=== PATIENT | male | born 1990 | race Caucasian/White ===

== ENCOUNTER 2018-06-11 00:39 | Emergency (ER) | payer MEDICAID, SELFPAY ==
[2018-06-11] VITALS (8 sets, daily range): BP systolic 115–140; BP diastolic 71–98; PULSE 95–105; RESP 14–18; TEMP 36.7; O2SAT 97–98; BMI 25.1
--- NOTE | 2018-06-11 01:16 | ED.VISSUMM ---
- ER Visit Summary Date of Service: 06/11/18 Chief Complaint: Depression and suicidal ideation History of Present Illness: The patient is a 27 M who presents with depression and suicidal ideation that became worse today. Patient states he has been depressed his whole life. Patient states he wants to hurt himself tonight. Patient admits to drinking beer tonight. Mother states a girl recently broke up with him which caused him to become suicidal tonight. Patient denies any specific plan for suicide. Patient states he would just hurt himself anyway he can. Physical Examination: Vital signs are stable. Patient is afebrile. Patient is in no acute distress. Oral mucosa is pink and moist. Neck is supple. Trachea is midline. There is no JVD noted. Heart was regular rate and rhythm. Lungs are clear and equal bilateral. There is good respiratory effort noted. Abdomen is soft and nontender. Cranial nerves II through XII are intact. There are no focal motor or sensory deficits noted. Patient does have a depressed mood and a flat affect. Patient has poverty of speech. Patient admits to suicidal thoughts but denies any specific plan. Test Results: CBC and basic metabolic profile were within normal limits. Urine tox screen was positive for amphetamines and cannabinoids. Serum alcohol was slightly elevated at 112. Emergency Department Course and Treatment: Patient was given a dose of Ativan here. Crisis counseling will be in to evaluate the patient. Crisis and I both feel patient would benefit from inpatient therapy. Crisis is attempting to find placement for the patient. Disposition: Transfer per crisis evaluation Impression: Depression with suicidal ideation This note was generated with MacuCLEAR dictation software. It may contain incorrect words, spelling, and punctuation that were not noted in review of the chart prior to signing ED Disposition - Plan for ED Patient: Chief Complaint: Suicidal Referrals: Antwon Joseph DO [Primary Care Provider] -
[2018-06-11 01:49] LABS: Absolute Lymphocyte Count 2.57 X10^3/ul (0.83-4.51); Absolute Neutrophil Count 5.8 X10^3/uL (2.0-7.7); Basophil# 0.04 X10^3/uL; Basophil% 0.4 % (0-1); Eosinophil# 0.13 X10^3/uL; Eosinophils% 1.4 % (0-5); Hematocrit 44.6 % (40-54); Hemoglobin 15.9 g/dl (13.0-16.5); Lymphocyte # 2.57 X10^3/ul (4.0); Mean Corp Hgb Conc 35.7 g/gl (32-36); Mean Corpuscular Hgb 36.2 pg (27.0-32.0); Mean Corpuscular Volume 101.6 fL (80-94); Mean Platelet Vol. 9.3 fl (6.2-12.0); Monocyte# 0.64 X10^3/uL; Neutrophil # 5.76 X10^3/uL (2.7-7.7); Neutrophil % 62.9 % (47-70); POSITIVE COUNT NO; POSITIVE DIFFERENTIAL NO; POSITIVE MORPHOLOGY NO; Platelet Count 354 K/mm3 (150-450); RBC Distribution Width CV 11.8 % (11.6-14.6); RBC Distribution Width SD 43.8 fl (35.1-43.9); Red Blood Count 4.39 M/mm3 (4.6-6.2); White Blood Count 9.2 K/mm3 (4.4-11.0)
[2018-06-11 01:55] LABS: Anion Gap 10 (5-15); BUN 10 mg/dL (7-18); BUN/Creat Ratio 12.9 RATIO (10-20); Calcium,Total 8.5 mg/dL (8.5-10.1); Chloride 104 mmol/L (98-107); Creatinine, Serum 0.78 mg/dL (0.70-1.30); EST Glomerular Filtration Rate 126 mL/min (>60); Est Glom Filt Rate - Afr Amer 153 mL/min (>60); Estimated Creatinine Clearance 150.17 ml/min; Glucose 93 mg/dL (74-106); Potassium 3.5 mmol/L (3.5-5.1); Sodium Level 139 mmol/L (136-145)
[2018-06-11 01:57] LABS: Amphetamine Urine VISTA POSITIVE (<1000 ng/mL); Barbiturate Urine VISTA NEGATIVE (< 200 ng/mL); Benzodiazepine Urine VISTA NEGATIVE (< 200 ng/mL); Cocaine Urine VISTA NEGATIVE (< 300 ng/mL); Ecstacy Urine VISTA NEGATIVE (< 500 ng/mL); Methadone Urine VISTA NEGATIVE (< 300 ng/mL); PCP Urine VISTA NEGATIVE (< 25 ng/mL); THC Urine VISTA POSITIVE (< 50 ng/mL); Vista UDS pH Range 6
--- NOTE | 2018-06-11 03:05 | ED.RN ---
CRISIS CALLED AND MADE AWARE OF PATIENT. CURRENTLY AT [facility]. AYUSH WITH CRISIS WILL IN SEE TO PATIENT SOON POSSIBLE
--- NOTE | 2018-06-11 03:06 | NURSING ---
CRISIS CALLED @ 0300. AYUSH NOTIFIED.
[2018-06-11] MEDS: LORazepam 1 MG Tablet PO (03:21)
--- NOTE | 2018-06-11 07:44 | ED.RN ---
PT CALM, HOWEVER IS SITTER UP IN BED WITH ONE LEG SWINGING OFF THE SIDE OF THE BED. PT HAS A SCOWL ON HIS FACE.
--- NOTE | 2018-06-11 08:09 | ED.RN ---
PT CONTINUES TO REFUSE FOOD.
--- NOTE | 2018-06-11 08:16 | ED.RN ---
PT RAN OUT OF ED, PT HAD A FRIEND WAITING OUTSIDE, RAN DOWN THE RAMP WITH A FRIEND. PT BAREFOOT, IN UNDERWEAR, AND GOWN. SECURITY CALLING LAW ENFORCEMENT.
--- NOTE | 2018-06-11 09:01 | ED.RN ---
pt accepted at [facility]. hailey from crisis aware that pt eloped
== END 2018-06-11 08:15 | disposition left against medical advice (07) ==
PROVIDERS: Emergency Provider Emergency Medicine; Family Provider Family Medicine; PCP Family Medicine
DX: R45.851 Suicidal ideations (principal); F32.9 Major depressive disorder, single episode, unspecified; Z72.0 Tobacco use; Z79.899 Other long term (current) drug therapy
CPT/HCPCS: 36415; 80048; 80307; 80320; 85025; 99284; G0480

== ENCOUNTER 2023-03-28 21:56 | Emergency (ER) | payer SELFPAY ==
[2023-03-28 21:58] VITALS: BP 127/92; PULSE 102; RESP 15; TEMP 36.6; O2SAT 100; BMI 28.8
--- NOTE | 2023-03-28 22:09 | EKG12_ITS ---
Test Reason : CP Blood Pressure : / mmHG Vent. Rate : 095 BPM Atrial Rate : 095 BPM P-R Int : 162 ms QRS Dur : 126 ms QT Int : 376 ms P-R-T Axes : 016 -09 005 degrees QTc Int : 472 ms Normal sinus rhythm Non-specific intra-ventricular conduction block Abnormal ECG Confirmed by NÉSTOR CERVANTES, NISHA ([id number]), features editor TESS MURRIETA ([id number]) on 03/31/2023 7:39:17 AM Referred By: MATT Confirmed By:NISHA PALM MD
--- NOTE | 2023-03-28 22:15 | RAD_ITS ---
INDICATION: chest pain EXAMINATION/TECHNIQUE: X-RAY - XR Chest 1 View COMPARISON: No comparison imaging received FINDINGS: LINES/DEVICES: None. LUNGS: No pulmonary edema or focal airspace consolidation. No sizable pleural effusion. No pneumothorax detected. MEDIASTINUM AND CARDIOVASCULAR STRUCTURES: Heart size within normal limits. Mediastinal contours unremarkable. BONES AND SOFT TISSUES: No acute findings. RAD/Chest 1 View (Portable) IMPRESSION: No radiographic evidence of acute cardiopulmonary disease. Electronically Signed: Shmuel Lee MD at 22:31 EDT ,
[2023-03-28 22:30] LABS: Absolute Lymphocyte Count 1.36 X10^3/uL (0.83-4.51); Basophil# 0.04 X10^3/uL; Basophil% 0.4 % (0-1); Eosinophil# 0.02 X10^3/uL; Eosinophils% 0.2 % (0-5); Lymphocyte # 1.36 X10^3/ul (0.83-4.51); Lymphocyte % 13.4 % (19-41); Mean Corp Hgb Conc 34.1 g/dL (32-36); Mean Corpuscular Hgb 35.4 pg (27.0-32.0); Mean Corpuscular Volume 103.5 fL (80-94); Mean Platelet Vol. 9.3 fl (6.2-12.0); Monocyte# 0.68 X10^3/uL; Monocyte% 6.7 % (0-10); NRBC Flagged by Analyzer 0 % (0-5); Neutrophil % 78.8 % (47-70); Platelet Count 302 K/mm3 (150-450); RBC Distribution Width CV 11.6 % (11.6-14.6); RBC Distribution Width SD 44.6 fl (35.1-43.9); Red Blood Count 3.96 M/mm3 (4.6-6.2); White Blood Count 10.2 K/mm3 (4.4-11.0)
[2023-03-28 22:43] LABS: D-Dimer Quantitative (DVT/PE) < 0.27 FEU/ug/m (0.27-0.49)
[2023-03-28 22:48] LABS: Anion Gap 6 (5-15); BUN 16 mg/dL (7-18); BUN/Creat Ratio 15.4 RATIO (10-20); Calcium,Total 8.9 mg/dL (8.5-10.1); Chloride 102 mmol/L (98-107); Creatinine, Serum 1.04 mg/dL (0.70-1.30); EST Glomerular Filtration Rate 87 mL/min (>60); Est Glom Filt Rate - Afr Amer 106 mL/min (>60); Glucose 98 mg/dL (74-106); Potassium 3.8 mmol/L (3.5-5.1); Sodium Level 136 mmol/L (136-145); Troponin-I HS 5 pg/mL (3.0-78.0)
--- NOTE | 2023-03-28 23:08 | ED.VIS.CHEST ---
HPI History of Present Illness Chief Complaint: Chest Pain Narrative Narrative: 32-year-old male presenting with chest pain and palpitations. He states he originally noticed this in June of this year while he was snow shoveling and noticed he had palpitations and a sharp pain which would come intermittently into the left side of his chest. This subsequently had subsided. He notes that a couple of months ago it started coming back and its been intermittent since then. He does feel like he is lightheaded at times. He does not have any chest pressure. There is no pleuritic component to it. Patient has no history of DVT and no risk factors. No history of cardiac disease. He admits to drinking a bottle of wine nightly and he does vape however he previously smoked cigarettes. He states he eats a healthy diet however. Is not had his chest pain evaluated yet because he does not have insurance or physician. The patient does note that he has history of anxiety and was previously on Ativan when he was younger. He is no longer on this. 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 He states he does have a high level of stress because of this. PFSH PFSH Medical History no medical history Home Medications NK 03/28/23 [History Last Taken Unknown] Allergy/AdvReac Type Severity Reaction Status Date / Time No Known Allergies Allergy Verified 03/28/23 22:00 Surgical History no surgical history Social History Smoking Status: Current every day smoker tobacco type: e-cigarettes ROS ROS ED Constitutional Constitutional ED: Denies chills, fever(s) or sweats Eyes Eyes: Denies blurry vision or change in vision ENT ENT ED: Denies ear pain or sore throat Cardiovascular Cardiovascular: Reports chest pain and palpitations; Denies racing heartbeat Respiratory/Chest Respiratory/Chest: Denies cough, dyspnea or sputum Gastrointestinal Gastrointestinal: Denies abdominal pain, constipation, diarrhea, nausea or vomiting Genitourinary Genitourinary ED: Denies dysuria, hematuria or urinary frequency Musculoskeletal Musculoskeletal: Denies arthralgias, myalgias or neck pain Integumentary Denies abscess, Abrasions or rash Neurologic Neurologic: Denies headache(s), paresthesias or weakness Psychiatric Psychiatric: Denies anxiety, depression, suicidal ideation or suicidal thoughts Endocrine Endocrinology: Denies polydipsia or polyuria EXAM Physical Exam Const Vital Signs: 03/28/23 21:58 03/28/23 22:13 03/28/23 22:14 Temperature 97.9 F Temperature Source Temporal Pulse Rate 102 H Respiratory Rate 15 Respiratory Effort Normal Non-Labored Blood Pressure 127/92 H Blood Pressure Mean 103 Pulse Ox 100 Oxygen Delivery Method Room Air Room Air Positive well nourished General Appearance ED: NAD HEENT Reports moist mucous membranes normocephalic and atraumatic Eyes PERRL Neck no lymphadenopathy Chest Wall inspection of chest normal and palpation of chest normal Resp normal respiratory effort and clear to auscultation bilaterally Auscultation: Negative for rales, rhonchi or wheezes Cardio regular rate and regular rhythm Extremity normal to inspection General Extremety ED: Negative for edema General Extremity: Negative for edema Neuro oriented x3 and CN's II-XII intact bilaterally Sensorium / Orientation: awake and alert Psych mental status grossly normal Skin no rashes or lesions noted Heart Score History: Slightly/Non-Suspicious ECG: Normal Risk Factors: 1 or 2 Risk Factors Troponin: </= Normal Limit Score: 1 MDM MDM MDM Narrative Medical decision making narrative: 2-year-old male with history of anxiety and chest pain and palpitations. Differential includes anxiety, ACS, pneumonia, costochondritis, dehydration, electrolyte abnormalities, PE. CBC was obtained to assess white blood cell count, hemoglobin, platelets. BMP to assess renal function and electrolytes. High-sensitivity troponin and EKG will be obtained to assess for ischemia/dysrhythmia. D-dimer will be obtained to rule out PE. X-ray to rule out pneumonia. Patient low risk for PE although he is tachycardic so I cannot PERC him. D-dimer was negative at less than 0.27. CBC shows a normal leukocytosis of 10.2. Hemoglobin 14. High-sensitivity troponin is 5. EKG shows a sinus rhythm at 95 bpm without sign of ischemic change on my interpretation. Chest x-ray my interpretation shows no acute process. Renal function and electrolytes appear to be normal. I do not believe the patient needs a delta troponin. I suspect this is likely due to anxiety. I recommend that he make an appointment for follow-up with her primary care physician and get established. I feel he can safely be discharged. All questions were answered. Discharged home in stable condition. Return precautions discussed. Impression: 1. Chest pain 2. Palpitations 3. Anxiety history Lab Data Attestation: I reviewed the patient's lab results. Labs: Laboratory Results - last 24 hr 03/28/23 22:28 WBC 10.2 RBC 3.96 L Hgb 14.0 Hct 41.0 MCV 103.5 H MCH 35.4 H MCHC 34.1 RDW Std Deviation 44.6 H RDW Coeff of Leslei 11.6 Plt Count 302 MPV 9.3 Immature Gran % (Auto) 0.500 Neut % (Auto) 78.8 H Lymph % (Auto) 13.4 L Hand % (Auto) 6.7 Eos % (Auto) 0.2 Baso % (Auto) 0.4 Absolute Neuts (auto) 8.0 H Absolute Lymphs (auto) 1.36 Nucleated RBC % 0 D-Dimer Quant (PE/DVT) < 0.27 L Sodium 136 Potassium 3.8 Chloride 102 Carbon Dioxide 28.0 Anion Gap 6 BUN 16 Creatinine 1.04 Estim Creat Clear Calc 107.60 Est GFR (MDRD) Af Amer 106 Est GFR (MDRD) Non-Af 87 BUN/Creatinine Ratio 15.4 Glucose 98 Calcium 8.9 Troponin I High Sens 5 Radiography Diagnostic Testing: Clinical Impression(s) from Imaging Studies Chest X-Ray 03/28/23 22:15 IMPRESSION: No radiographic evidence of acute cardiopulmonary disease. Electronically Signed: Shmuel Lee MD at 22:31 EDT , Discharge Plan Triage Chief Complaint: Chest Pain ED Provider: Eder Hemphill Dx/Rx/DC Orders Prescriptions: No Action NK Primary Care Provider: Care Physician,No Primary Referrals: Care Physician,No Primary [Primary Care Provider] -
[2023-03-28 23:27] VITALS: PULSE 72; RESP 16; O2SAT 98
== END 2023-03-28 23:28 | disposition home or self-care (01) ==
PROVIDERS: Emergency Provider Student in an Organized Health Care Education/Training Program; Visit Provider Student in an Organized Health Care Education/Training Program
DX: R07.9 Chest pain, unspecified (principal); Z87.891 Personal history of nicotine dependence; F41.9 Anxiety disorder, unspecified; R00.2 Palpitations
CPT/HCPCS: 71045; 80048; 84484; 85025; 85379; 93005; 99283; A4216

== ENCOUNTER → 2023-07-08 | Outpatient (CLI) | payer MEDICAID, SELFPAY ==
[2023-07-08 11:37] LABS: Absolute Lymphocyte Count 1.98 X10^3/uL (0.83-4.51); Basophil# 0.06 X10^3/uL; Eosinophil# 0.08 X10^3/uL; Eosinophils% 1.4 % (0-5); Hematocrit 44.4 % (40-54); Hemoglobin 14.9 g/dL (13.0-16.5); Lymphocyte # 1.98 X10^3/ul (0.83-4.51); Lymphocyte % 33.7 % (19-41); Mean Corp Hgb Conc 33.6 g/dL (32-36); Mean Corpuscular Hgb 34.7 pg (27.0-32.0); Mean Corpuscular Volume 103.3 fL (80-94); Mean Platelet Vol. 9.7 fl (6.2-12.0); Monocyte# 0.66 X10^3/uL; Monocyte% 11.2 % (0-10); NRBC Flagged by Analyzer 0 % (0-5); Neutrophil # 3.03 X10^3/uL (2.7-7.7); Neutrophil % 51.5 % (47-70); Platelet Count 353 K/mm3 (150-450); RBC Distribution Width CV 11.9 % (11.6-14.6); RBC Distribution Width SD 45.3 fl (35.1-43.9); White Blood Count 5.9 K/mm3 (4.4-11.0)
[2023-07-08 12:08] LABS: AST(SGOT) 31 U/L (15-37); Alanine Aminotransfer ALT/SGPT 42 U/L (16-61); Albumin, Serum 3.8 g/dL (3.2-5.0); Alkaline Phosphatase 65 U/L (45-117); Anion Gap 3 (5-15); BUN 15 mg/dL (7-18); BUN/Creat Ratio 15.1 RATIO (10-20); Calcium,Total 9.5 mg/dL (8.5-10.1); Chloride 106 mmol/L (98-107); Cholesterol 320 mg/dL (200); Creatinine, Serum 0.99 mg/dL (0.70-1.30); EST Glomerular Filtration Rate 92 mL/min (>60); Est Glom Filt Rate - Afr Amer 111 mL/min (>60); Globulin 3.8 g/dL (2.2-4.2); Glucose 103 mg/dL (74-106); High Density Lipoprotein 85 mg/dL; Potassium 4.7 mmol/L (3.5-5.1); Protein, Total 7.6 g/dL (6.4-8.2); Sodium Level 139 mmol/L (136-145); Thyroid Stim Hormone (TSH) 2.23 uIU/mL (0.358-3.74); Triglycerides 387 mg/dL; Very Low Density Lipoprotein 77 mg/dL (5-40)
== END | disposition home or self-care (01) ==
LOC: LAB 10:43
PROVIDERS: Referring Provider Internal Medicine Cardiovascular Disease; Visit Provider Internal Medicine Cardiovascular Disease
DX: R07.9 Chest pain, unspecified (principal); F17.200 Nicotine dependence, unspecified, uncomplicated; R42 Dizziness and giddiness; R00.2 Palpitations
CPT/HCPCS: 36415; 80053; 80061; 84443; 85025

== ENCOUNTER → 2023-11-03 | Outpatient (CLI) | payer MEDICAID, SELFPAY ==
--- NOTE | 2023-11-03 10:48 | ECHOD_ITS ---
Reason For Study: CHEST PAIN Procedure This was a 2D Doppler, Color Flow transthoracic echocardiogram. Exam performed in department. Left Ventricle Normal LV size. Left ventricular systolic function is normal. The estimated ejection fraction is 55 %. Normal diastololic function. Right Ventricle Normal RV size. Normal systolic function. Atria The left and right atria are normal. Mitral Valve The mitral valve is structurally normal. No prolapse or stenosis seen. Tricuspid Valve Normal tricuspid valve. Trivial tricuspid valve insufficiency. Unable to estimate RV systolic pressure due to insufficient tricuspid regurgitant envelope. Aortic Valve Trisinus/trileaflet aortic valve. Pulmonic Valve Normal pulmonic valve. Mild (1+) pulmonic valve insufficiency. Great Vessels Normal aortic root. Pericardium/Pleural No pericardial effusion. MMode/2D Measurements & Calculations LVIDd: 5.0 cm IVSd: 1.0 cm LVOT diam: 2.5 cm LVIDs: 3.1 cm LVPWd: 1.0 cm LVOT area: 4.9 cm2 RVDd: 3.9 cm FS: 37.1 % Ao root diam: 3.6 cm LAV(MOD-bp): 46.1 ml LVAd ap4: 31.7 cm2 LAV(MOD-bp) Indexed: 21.6 ml/m2 LVLd ap4: 9.4 cm LAV(MOD-sp2): 50.6 ml EDV(MOD-sp4): 90.7 ml LAV(MOD-sp4): 38.6 ml EDV(sp4-el): 90.7 ml LVAs ap4: 18.7 cm2 LVLs ap4: 7.8 cm ESV(MOD-sp4): 39.0 ml ESV(sp4-el): 38.1 ml EF(MOD-sp4): 57.0 % EF(sp4-el): 58.0 % LVAd ap2: 33.8 cm2 SV(MOD-sp4): 51.7 ml SV(MOD-sp2): 56.7 ml LVLd ap2: 9.4 cm EDV(MOD-sp2): 101.8 ml EDV(sp2-el): 102.8 ml LVAs ap2: 20.3 cm2 LVLs ap2: 8.0 cm ESV(MOD-sp2): 45.1 ml ESV(sp2-el): 43.6 ml EF(MOD-sp2): 55.7 % SV(sp4-el): 52.7 ml LA dimension(2D): 4.5 cm LA A4 area: 16.8 cm2 RA A4 area: 14.9 cm2 TAPSE: 1.7 cm Time Measurements MV dec time: 0.21 sec Doppler Measurements & Calculations MV E max roc: 77.8 cm/sec Lat Peak E' Roc: 17.2 cm/sec Med Peak E' Roc: 11.2 cm/sec MV A max roc: 66.0 cm/sec E/E' lat: 4.5 E/E' med: 7.0 MV E/A: 1.2 Ao V2 max: 109.3 cm/sec LV V1 max: 103.3 cm/sec MV dec slope: 362.1 cm/sec2 Ao max P.8 mmHg LV V1 max P.3 mmHg Ao V2 mean: 75.3 cm/sec LV V1 mean P.5 mmHg Ao mean P.6 mmHg LV V1 mean: 73.8 cm/sec Ao V2 VTI: 22.8 cm LV V1 VTI: 22.1 cm AV (velocity ratio): 0.97 GETACHEW(I,D): 4.8 cm2 GETACHEW(V,D): 4.6 cm2 SV(LVOT): 108.6 ml PA V2 max: 105.9 cm/sec PA max PG (full): 2.3 mmHg ECHO/Echo Complete Interpretation Summary The estimated ejection fraction is 55 %. Normal diastololic function. Structurally normal valves. Ordering Physician: Marissa Zeng Referring Physician: Marissa Zeng Performed By: Vianca Pacheco RDCS
== END | disposition home or self-care (01) ==
LOC: CVS 10:45
PROVIDERS: Referring Provider Internal Medicine Cardiovascular Disease; Visit Provider Internal Medicine Cardiovascular Disease
DX: R42 Dizziness and giddiness (principal); R00.2 Palpitations; R07.9 Chest pain, unspecified
CPT/HCPCS: 93306

== ENCOUNTER 2023-12-05 18:40 | Emergency (ER) | payer MEDICAID, SELFPAY ==
[2023-12-05 18:41] VITALS: BP 138/99; PULSE 87; RESP 18; TEMP 36.1; O2SAT 97; BMI 29.5
--- NOTE | 2023-12-05 18:53 | CT_ITS ---
EXAM: CT ABDOMEN AND PELVIS WITH INTRAVENOUS CONTRAST CLINICAL INDICATION: Epigastric pain TECHNIQUE: Helically acquired images were obtained of the abdomen and pelvis with intravenous contrast. This CT exam was performed using one or more of the following dose reduction techniques: automated exposure control, adjustment of the mA and/or kV according to patient size, and/or use of iterative reconstruction technique. CONTRAST: IV 100mL Isovue-370 RADIATION DOSE: CTDIvol = 15.09 mGy, DLP = 1198.66 mGy-cm COMPARISON: No relevant prior studies available. FINDINGS: LOWER THORAX: Unremarkable. Lung bases are clear. No cardiomegaly. No significant pericardial effusion. ABDOMEN: LIVER: Unremarkable. Homogeneous. No focal mass. GALLBLADDER AND BILE DUCTS: Unremarkable. No calcified gallstones. No gallbladder distention or wall edema. No intra- or extrahepatic biliary ductal dilation. PANCREAS: Unremarkable. No focal cystic or solid mass. SPLEEN: Unremarkable. Normal size without focal cystic or solid mass. ADRENALS: Unremarkable. No nodules. KIDNEYS AND URETERS: Unremarkable. Normal renal size and position. No hydronephrosis. STOMACH AND BOWEL: Wall thickening and inflammation of the terminal ileum suggesting terminal ileitis. No stomach or bowel distention. PELVIS: APPENDIX: No evidence of acute appendicitis. BLADDER: Unremarkable. REPRODUCTIVE: Unremarkable as visualized. No mass. ABDOMEN and PELVIS: INTRAPERITONEAL SPACE: Unremarkable. No ascites or other fluid collection. No free air. BONES/JOINTS: Unremarkable. No suspicious lytic or blastic abnormality. SOFT TISSUES: Unremarkable. No discrete abdominal or pelvic wall hernia. VASCULATURE: Unremarkable. Abdominal aorta is non-dilated. LYMPH NODES: Unremarkable. No enlarged lymph nodes. CT/Abdomen/Pelvis W IV Cont ONLY IMPRESSION: Wall thickening and inflammation of the terminal ileum suggesting terminal ileitis. Electronically Signed: Billy Rangel MD at 20:02 EDT ,
--- NOTE | 2023-12-05 18:53 | ED.VIS.GI ---
HPI HPI - GI History of Present Illness Chief Complaint: Abd Pain Narrative Narrative: 33-year-old male presents with his mother because of epigastric pain, and diarrhea that has had for the last few hours. He relates history that on Thursday at the beginning of the week, almost 6 days ago he felt like he may have had food poisoning. He had nausea and vomiting which resolved. Last evening and a few hours ago he developed diarrhea, now has epigastric pain and cramping. He denies any fevers or chills, no exacerbating or alleviating factors. Said decreased appetite as well all week. He presents mainly because of the upper, epigastric pain. He does drink alcohol and states that he drinks a bottle of wine almost daily. No prior abdominal surgeries. He does not take daily medications. [facility] Medical History Nicotine dependence ETOH abuse Anxiety Lightheadedness Palpitations Chest pain Home Medications ?Medication ?Instructions ?Recorded ?Last Taken ?Type NK 07/08/23 Unknown History Allergy/AdvReac Type Severity Reaction Status Date / Time No Known Allergies Allergy Verified 12/05/23 18:42 Social History household members: family housing: house Smoking Status: Current some day smoker tobacco type: e-cigarettes Electronic Cigarette Use: with nicotine alcohol intake: current alcohol intake frequency: a few times a week Alcohol type: wine substance use type: does not use caffeine: No ROS ROS ED ROS Narrative Constitutional: No fever, no chills. HEENT: No sore throat. No neck pain. No loss of vision. No rhinorrhea. Cardiovascular: No chest pain. No palpitations. No pedal edema. Respiratory: No cough, no shortness of breath. Abdominal: Positive epigastric pain. Reported watery stool and diarrhea beginning early this morning. Nausea and vomiting earlier in the week-resolved. Genitourinary: No dysuria. No hematuria. Musculoskeletal: No myalgias. No arthralgias. Neurologic: No headaches. No dizziness. No lightheadedness. Skin: No rash. No change in color. Psychiatric: No depression. No anxiety. EXAM Physical Exam Narrative Exam Narrative: Afebrile. Vital signs noted. HEENT: Normocephalic. Atraumatic. PERRL, EOMI. Neck soft and supple. No point tenderness or step off. Cardiovascular: Regular rate and rhythm. No murmurs, rubs, or gallops appreciated. Respiratory: No tachypnea. Lungs clear to auscultation bilaterally. Gastrointestinal: Abdomen soft, positive epigastric tenderness, with normoactive bowel sounds. No rebound or guarding. Negative Contreras sign. No tenderness in the bilateral lower quadrants. Neurological: Awake. Alert. Nonfocal, nonlateralizing. Skin: No rash. Normal color. No pallor. Musculoskeletal: No pedal edema. Full range of motion extremities. Const Vital Signs: 12/05/23 18:41 12/05/23 20:40 12/05/23 20:52 Temperature 97 F L 97 F L Temperature Source Temporal Pulse Rate 87 72 72 Respiratory Rate 18 14 14 Blood Pressure 138/99 H 113/78 113/78 Blood Pressure Mean 112 89 89 Pulse Ox 97 98 98 Oxygen Delivery Method Room Air MDM MDM MDM Narrative Medical decision making narrative: With his history of alcohol use, the differential is pancreatitis versus alcoholic gastritis. He could have transverse diverticulitis as well versus gastroenteritis. Comprehensive workup was pursued. He will be bolused normal saline and administered ondansetron. I will check a CBC, CMP, and lipase. I do feel that CT imaging is warranted. I reviewed his laboratory work and he has normal white count of 8.8, hemoglobin 13.9, hematocrit 40.9, platelet count normal at 286. Electrolyte panel is grossly unremarkable with normal BUN of 11 and creatinine 0.88, sodium normal at 138 with potassium 3.5. LFTs are grossly unremarkable except for total bilirubin slightly elevated 1.4, but this appears to be chronic. Lipase normal at 38 so I do not suspect acute pancreatitis. Reviewed the radiology report of the CT of the abdomen and pelvis which shows wall thickening around the terminal ileum consistent with terminal ileitis. However, he does not have pain in the lower quadrants of the abdomen, and it is more epigastric. He had been given morphine and ondansetron and a bolus of normal saline. I discussed the patient with Dr. Wang who agrees with outpatient workup of the terminal ileitis but the patient does not require any emergent medications currently. He and his mother state that he has taken omeprazole on and off for years. I told him to restart his omeprazole and follow-up with gastroenterology. He may have more of a gastritis. I feel he can be discharged safely home with follow-up. Return instructions to the emergency department were reviewed. Disposition is discharged home in stable condition. History & Record Review Discussion w/independent historian: Patient Lab Data Attestation: I reviewed the patient's lab results. Labs: Laboratory Results - last 24 hr 12/05/23 12/05/23 18:55 19:03 WBC 8.8 RBC 4.04 L Hgb 13.9 Hct 40.9 MCV 101.2 H MCH 34.4 H MCHC 34.0 RDW Std Deviation 44.8 H RDW Coeff of Leslie 11.9 Plt Count 286 MPV 9.0 Immature Gran % (Auto) 0.500 Neut % (Auto) 75.1 H Lymph % (Auto) 12.8 L [place] % (Auto) 10.0 Eos % (Auto) 1.1 Baso % (Auto) 0.5 Absolute Neuts (auto) 6.6 Absolute Lymphs (auto) 1.13 Nucleated RBC % 0 Sodium 138 Potassium 3.5 Chloride 104 Carbon Dioxide 25.0 Anion Gap 9 BUN 11 Creatinine 0.88 Estim Creat Clear Calc 139.96 Est GFR (MDRD) Af Amer 128 Est GFR (MDRD) Non-Af 106 BUN/Creatinine Ratio 12.5 Glucose 111 H Calcium 9.0 Total Bilirubin 1.40 H AST 24 ALT 34 Alkaline Phosphatase 50 Total Protein 7.2 Albumin 3.6 Globulin 3.6 Albumin/Globulin Ratio 1.0 Lipase 38 Urine Color Yellow Urine Clarity Clear Urine pH 6.0 Ur Specific [place] 1.020 Urine Protein Negative Urine Glucose (UA) Normal Urine Ketones Negative Urine Occult Blood 25 H Urine Nitrite Negative Urine Bilirubin Negative Urine Urobilinogen Normal Ur Leukocyte Esterase Negative Urine RBC 0-5 SEEN Urine WBC 0 SEEN Ur Squamous Epith Cells 0 SEEN Urine Bacteria RARE Urine Mucus 0 SEEN Radiography Diagnostic Testing: Clinical Impression(s) from Imaging Studies Abdomen/Pelvis CT 12/05/23 18:53 IMPRESSION: Wall thickening and inflammation of the terminal ileum suggesting terminal ileitis. Electronically Signed: Billy Rangel MD at 20:02 EDT Reading Location ID and State: [facility] / [place] , Service support , Management Discussion w/another healthcare provider: Staffing Mgr (Dr. Wang) Discharge Plan Triage Chief Complaint: Abd Pain ED Provider: Kwame Mendiola Dx/Rx/DC Orders Clinical Impression: Terminal ileitis, Epigastric abdominal pain Instructions: ED Gastritis Ulcer No Abx, ED Epigastric Pain Uncertain Cause Prescriptions: No Action NK Primary Care Provider: Care Physician,No Primary Referrals: Johnny Wang DO [Med Staff - Active Staff] - As soon as possible Care Physician,No Primary [Primary Care Provider] - Activity Restrictions/Additional Instructions: Start taking your omeprazole again. Follow-up with Dr. Wang as soon as possible. Print Language: Cymraes Disposition Disposition: Home, Self Care Discharge Date/Time: 12/05/23 21:12
[2023-12-05] MEDS: 0.9% Normal Saline (1000mL) 1,000 ML 999 ML IV (19:02)
[2023-12-05] MEDS: Ondansetron 4 MG/2 ML Vial IV (19:02)
[2023-12-05 19:04] LABS: Absolute Lymphocyte Count 1.13 X10^3/uL (0.83-4.51); Absolute Neutrophil Count 6.6 X10^3/uL (2.0-7.7); Basophil# 0.04 X10^3/uL; Basophil% 0.5 % (0-1); Eosinophils% 1.1 % (0-5); Hematocrit 40.9 % (40-54); Hemoglobin 13.9 g/dL (13.0-16.5); Lymphocyte # 1.13 X10^3/ul (0.83-4.51); Lymphocyte % 12.8 % (19-41); Mean Corpuscular Hgb 34.4 pg (27.0-32.0); Mean Corpuscular Volume 101.2 fL (80-94); Monocyte# 0.88 X10^3/uL; NRBC Flagged by Analyzer 0 % (0-5); Neutrophil # 6.64 X10^3/uL (2.7-7.7); Neutrophil % 75.1 % (47-70); Platelet Count 286 K/mm3 (150-450); RBC Distribution Width CV 11.9 % (11.6-14.6); RBC Distribution Width SD 44.8 fl (35.1-43.9); Red Blood Count 4.04 M/mm3 (4.6-6.2); White Blood Count 8.8 K/mm3 (4.4-11.0)
[2023-12-05 19:10] LABS: Mucous, Urine 0 SEEN /hpf (<or=2+); Squamous Epithelial Cells - UA 0 SEEN /hpf (0-5); White Blood Cells 0 SEEN /hpf (0-5)
[2023-12-05 19:14] LABS: Color, Urine Yellow (Yellow); Glucose, Dipstick Normal (Normal); Ketone-Dipstick Negative (Negative); Leukocyte Esterase-Dipstick Negative /ul (Negative); Nitrite-Dipstick Negative (Negative); Occult Blood-Urine 25 /ul (Negative); Protein-Dipstick Negative (Negative); Urine Bilirubin Dipstick Negative (Negative); Urine Clarity Clear (Clear); Urine Urobilinogen Normal (Normal)
[2023-12-05 19:25] LABS: Bacteria RARE /hpf (None Seen); Red Blood Cells-Urine 0-5 SEEN /hpf (0-5)
[2023-12-05 19:30] LABS: AST(SGOT) 24 U/L (15-37); Alanine Aminotransfer ALT/SGPT 34 U/L (16-61); Albumin, Serum 3.6 g/dL (3.2-5.0); Alkaline Phosphatase 50 U/L (45-117); Anion Gap 9 (5-15); BUN 11 mg/dL (7-18); BUN/Creat Ratio 12.5 RATIO (10-20); Chloride 104 mmol/L (98-107); Creatinine, Serum 0.88 mg/dL (0.70-1.30); EST Glomerular Filtration Rate 106 mL/min (>60); Est Glom Filt Rate - Afr Amer 128 mL/min (>60); Estimated Creatinine Clearance 139.96 ml/min; Globulin 3.6 g/dL (2.2-4.2); Glucose 111 mg/dL (74-106); Lipase 38 U/L (13-75); Potassium 3.5 mmol/L (3.5-5.1); Protein, Total 7.2 g/dL (6.4-8.2); Sodium Level 138 mmol/L (136-145)
[2023-12-05] MEDS: Morphine 4 MG/ML Syringe IV (20:19)
[2023-12-05 20:40] VITALS: BP 113/78; PULSE 72; RESP 14; O2SAT 98
[2023-12-05 20:52] VITALS: BP 113/78; PULSE 72; RESP 14; TEMP 36.1; O2SAT 98
== END 2023-12-05 21:12 | disposition home or self-care (01) ==
PROVIDERS: Emergency Provider Emergency Medicine; Visit Provider Emergency Medicine
DX: R10.13 Epigastric pain (principal); K50.00 Crohn's disease of small intestine without complications; F17.290 Nicotine dependence, other tobacco product, uncomplicated
CPT/HCPCS: 74177; 80053; 81001; 83690; 85025; 96361; 96374; 96375; 99283; J7030; Q9967; A4216; J2405

== ENCOUNTER 2024-06-13 17:55 | Emergency (ER) | payer MEDICAID, SELFPAY ==
[2024-06-13] VITALS (7 sets, daily range): BP systolic 103–132; BP diastolic 62–99; PULSE 82–101; RESP 12–26; TEMP 36.6; O2SAT 95–100; BMI 27.8
--- NOTE | 2024-06-13 18:57 | EKG12_ITS ---
Test Reason : CP Blood Pressure : */* mmHG Vent. Rate : 94 BPM Atrial Rate : 94 BPM P-R Int : 170 ms QRS Dur : 122 ms QT Int : 368 ms P-R-T Axes : 31 -20 -5 degrees QTcB Int : 460 ms Normal sinus rhythm Non-specific intra-ventricular conduction delay Borderline ECG Confirmed by NÉSTOR CERVANTES, NISHA ([id number]), purchasing expeditor ANGELES IVY ([id number]) on 06/16/2024 2:23:41 PM Referred By: ANNEL Confirmed By: NISHA PALM MD
--- NOTE | 2024-06-13 19:05 | RAD_ITS ---
STUDY: X-RAY CHEST REASON FOR EXAM: Male, 33 years old. Chest pain TECHNIQUE: PA and lateral views of the chest. COMPARISON: None. FINDINGS: The lungs are clear and expanded. There is no demonstrated pleural abnormality. Normal size heart. Normal mediastinum and karissa. Normal visualized pulmonary arteries. Normal visualized aortic arch and descending thoracic aorta. Normal visualized thoracic spine. Normal visualized ribs, clavicles, and shoulders. There is no demonstrated abnormality of the visualized soft tissue structures of the upper abdomen. RAD/Chest PA and Lateral IMPRESSION: Normal x-ray examination of the chest. Electronically Signed: Og Shanks MD at 20:51 EST ,
[2024-06-13 19:12] LABS: Absolute Lymphocyte Count 1.98 X10^3/uL (0.83-4.51); Absolute Neutrophil Count 4.2 X10^3/uL (2.0-7.7); Basophil# 0.06 X10^3/uL; Basophil% 0.9 % (0-1); Eosinophil# 0.02 X10^3/uL; Eosinophils% 0.3 % (0-5); Hematocrit 40.7 % (40-54); Hemoglobin 14.2 g/dL (13.0-16.5); Lymphocyte # 1.98 X10^3/ul (0.83-4.51); Lymphocyte % 28.5 % (19-41); Mean Corp Hgb Conc 34.9 g/dL (32-36); Mean Corpuscular Volume 100.2 fL (80-94); Mean Platelet Vol. 10.5 fl (6.2-12.0); Monocyte# 0.63 X10^3/uL; Monocyte% 9.1 % (0-10); NRBC Flagged by Analyzer 0 % (0-5); Neutrophil % 60.5 % (47-70); Platelet Count 281 K/mm3 (150-450); RBC Distribution Width CV 11.9 % (11.6-14.6); RBC Distribution Width SD 43.7 fl (35.1-43.9); Red Blood Count 4.06 M/mm3 (4.6-6.2); White Blood Count 6.9 K/mm3 (4.4-11.0)
--- NOTE | 2024-06-13 19:14 | ED.VIS.CHEST ---
HPI History of Present Illness Chief Complaint: Chest Pain Narrative Narrative: Chief complaint and HPI: Chest pain. 33-year-old male presents for evaluation of chest pain. Patient states that he has a recurrent history of chest pain. He states that he followed up with cardiology as well as wore a Holter monitor in the past without further workup or etiology. However, on chart review patient had an echocardiogram in October 2023 that showed an EF of 55%. Last cardiology note was reviewed and at that time they state that they do not have any records of the patient wearing a Holter monitor. They also ordered a stress test x 2 which the patient states he has still not obtained. Patient states that he developed this episode of chest pain while working. He describes it as sharp. He states that he occasionally gets lightheaded when he develops the chest pain. He took Advil prior to arrival. He states that the chest pain is already improving. He denies any shortness of breath, nausea, vomiting. Patient states he has been under a lot of stress lately. He is very anxious and tearful. Review of systems: See HPI Medications: As listed on the chart Allergies: As listed on the chart PFSH: Per chart Vital signs: As listed on the chart. Reviewed. Physical exam: Gen: A&O x3, anxious, tearful Head: Normocephalic, atraumatic Eyes: No sclera icterus, conjunctiva clear ENT: Moist mucous membranes Neck: Trachea midline, No JVD CV: RRR, no murmurs, no peripheral edema Resp: Lungs CTA BL, no w/r/c GI: Abd soft, non-distended, non-tender, no r/r/g Musc: Full ROM, no deformity Skin: Warm, dry Neuro: Alert, oriented, grossly intact, sensation intact Psych: Cooperative, anxious, tearful [facility] Medical History Nicotine dependence ETOH abuse Anxiety Lightheadedness Palpitations Chest pain Home Medications ?Medication ?Instructions ?Recorded ?Last Taken ?Type omeprazole 20 mg capsule,delayed 20 mg PO QDAY 05/24/24 Unknown History release Allergy/AdvReac Type Severity Reaction Status Date / Time No Known Allergies Allergy Verified 06/13/24 17:58 Social History (Updated 05/24/24 @ 11:42 by Brittney Moon) household members: family housing: house Smoking Status: Former smoker Tobacco: How many years used: 10 how long ago did patient quit smoking: Former smoker 2022. Former vaper 2023. alcohol intake: current alcohol intake frequency: a few times a week Alcohol type: wine substance use type: does not use and marijuana caffeine: No EXAM Physical Exam Const Vital Signs: 06/13/24 17:56 06/13/24 18:01 06/13/24 18:54 Temperature 97.8 F Temperature Source Temporal Pulse Rate 101 H 87 Respiratory Rate 26 H 14 Respiratory Effort Normal Non-Labored Blood Pressure 132/93 H 120/86 H Blood Pressure Mean 106 97 Pulse Ox 100 95 Oxygen Delivery Method Room Air Room Air 06/13/24 19:00 06/13/24 20:00 06/13/24 21:00 Temperature Temperature Source Pulse Rate 85 86 82 Respiratory Rate 17 14 12 Respiratory Effort Blood Pressure 132/96 H 103/62 118/79 Blood Pressure Mean 108 75 92 Pulse Ox 96 98 98 Oxygen Delivery Method Room Air Room Air Room Air 06/13/24 22:00 06/13/24 22:31 Temperature 97.8 F Temperature Source Pulse Rate 82 91 Respiratory Rate 12 16 Respiratory Effort Blood Pressure 112/65 130/99 H Blood Pressure Mean 80 109 Pulse Ox 98 95 Oxygen Delivery Method Room Air MDM MDM MDM Narrative Medical decision making narrative: 33-year-old male presents for evaluation of chest pain. Patient has a history of recurrent chest pain in which he has seen cardiology. He was scheduled for a outpatient stress test x 2 and has not obtained this. On presentation, patient states his chest pain is improving. Aspirin ordered for pain. Patient is very anxious and tearful therefore patient was offered Ativan and he accepted. Differential diagnosis includes but is not limited to anxiety reaction, palpitations, electrolyte abnormality, hyperthyroidism, PE, ACS. Cardiac workup ordered. EKG and chest x-ray reviewed see below. CBC without leukocytosis or anemia. D-dimer unremarkable. BMP relatively unremarkable. Troponin unremarkable x 2. BNP unremarkable. TSH unremarkable. On reevaluation patient states his chest pain has resolved. He is no longer anxious or tearful. Vitals are stable except for some mild hypertension. Patient heart score is a 0 but can be a 1 if you include his current hypertension. Patient is low risk for ACS. Will place patient on a Holter monitor however none are available at this time in the emergency department therefore patient given a prescription. He was educated to follow-up with cardiology. Return precautions explained. He confirmed understanding of the plan. Patient stable to discharge home. EKG: Interpreted by me/EM physician: EKG shows normal sinus rhythm without any acute ischemic changes. Heart rate 94. Diagnostic: Interpreted by me/EM physician: Chest x-ray without pneumonia, effusion, cardiomegaly, pneumothorax Impression: 1. Chest pain 2. Anxiety Lab Data Labs: Laboratory Results - last 24 hr 06/13/24 06/13/24 18:05 21:13 WBC 6.9 RBC 4.06 L Hgb 14.2 Hct 40.7 MCV 100.2 H MCH 35.0 H MCHC 34.9 RDW Std Deviation 43.7 RDW Coeff of Leslie 11.9 Plt Count 281 MPV 10.5 Immature Gran % (Auto) 0.700 Neut % (Auto) 60.5 Lymph % (Auto) 28.5 [place] % (Auto) 9.1 Eos % (Auto) 0.3 Baso % (Auto) 0.9 Absolute Neuts (auto) 4.2 Absolute Lymphs (auto) 1.98 Nucleated RBC % 0 D-Dimer Quant (PE/DVT) < 0.27 L Sodium 136 Potassium 3.4 L Chloride 102 Carbon Dioxide 25.0 Anion Gap 8 BUN 11 Creatinine 1.04 Estim Creat Clear Calc 115.20 Est GFR (MDRD) Af Amer 105 Est GFR (MDRD) Non-Af 87 BUN/Creatinine Ratio 10.6 Glucose 106 Calcium 8.9 Troponin I High Sens < 3 L 4 B-Natriuretic Peptide 11.7 TSH 2.580 Radiography Diagnostic Testing: Clinical Impression(s) from Imaging Studies Chest X-Ray 06/13/24 19:05 IMPRESSION: Normal x-ray examination of the chest. Electronically Signed: Og Shanks MD at 20:51 EST , Discharge Plan Triage Chief Complaint: Chest Pain ED Provider: Josue Tuttle Dx/Rx/DC Orders Clinical Impression: Chest pain Instructions: ED Chest Pain, Uncertain Cause Prescriptions: No Action omeprazole 20 mg capsule,delayed release(DR/EC) 20 mg PO QDAY Primary Care Provider: Care Physician,No Primary Referrals: Rigoberto Johnson MD [Med Staff - Active Staff] - 3-5 Days Pete Grajeda MD [Med Staff - Active Staff] - 3-5 Days Care Physician,No Primary [Primary Care Provider] - Activity Restrictions/Additional Instructions: Follow-up with cardiology. Call to make an appointment tomorrow morning. Follow-up with your PCP. If you do not have a PCP follow-up with the one provided above. Return back to the ED if symptoms change or worsen. You are given a prescription for Holter monitor. We do not have any available at this time in the emergency department. Print Language: Yakut Disposition Disposition: Home, Self Care Discharge Date/Time: 06/13/24 22:35
[2024-06-13] MEDS: Aspirin 81 MG TAB.CHEW 324 MG PO (19:23)
[2024-06-13] MEDS: LORazepam 2 MG/ML Syringe 1 MG IV (19:23)
[2024-06-13 19:35] LABS: D-Dimer Quantitative (DVT/PE) < 0.27 FEU/ug/m (0.27-0.49)
[2024-06-13 19:43] LABS: BNP,B-Type NATRIURETIC PEPTIDE 11.7 pg/mL (0-100)
[2024-06-13 19:44] LABS: Anion Gap 8 (5-15); BUN 11 mg/dL (7-18); BUN/Creat Ratio 10.6 RATIO (10-20); Calcium,Total 8.9 mg/dL (8.5-10.1); Chloride 102 mmol/L (98-107); Creatinine, Serum 1.04 mg/dL (0.70-1.30); EST Glomerular Filtration Rate 87 mL/min (>60); Est Glom Filt Rate - Afr Amer 105 mL/min (>60); Glucose 106 mg/dL (74-106); Potassium 3.4 mmol/L (3.5-5.1); Sodium Level 136 mmol/L (136-145); Troponin-I HS (w/2H Reflex) < 3 pg/mL (3.0-78.0)
[2024-06-13 21:08] LABS: Reflex Troponin-HS? (from REC) Y
[2024-06-13 21:45] LABS: Troponin-I HS 4 pg/mL (3.0-78.0)
== END 2024-06-13 22:35 | disposition home or self-care (01) ==
PROVIDERS: Emergency Provider Surgery; Visit Provider Surgery
DX: R07.9 Chest pain, unspecified (principal); F41.9 Anxiety disorder, unspecified; Z87.891 Personal history of nicotine dependence
CPT/HCPCS: 71046; 80048; 83880; 84443; 84484; 85025; 85379; 93005; 96374; 99285; A4216

== ENCOUNTER → 2024-06-17 | Outpatient (CLI) | payer MEDICAID, SELFPAY | END | disposition home or self-care (01) | LOC: PSN 12:24 | PROVIDERS: Referring Provider Surgery; Visit Provider Surgery | DX: R07.9 Chest pain, unspecified (principal) | CPT/HCPCS: 93225; 93226 ==

== ENCOUNTER 2024-07-16 19:57 | Emergency (ER) | payer MEDICAID, SELFPAY ==
[2024-07-16 19:57] VITALS: BP 109/98; PULSE 79; RESP 16; TEMP 36.6; O2SAT 98; BMI 30.2
--- NOTE | 2024-07-16 20:13 | EKG12_ITS ---
Test Reason : CP Blood Pressure : */* mmHG Vent. Rate : 69 BPM Atrial Rate : 69 BPM P-R Int : 156 ms QRS Dur : 116 ms QT Int : 414 ms P-R-T Axes : -2 -3 2 degrees QTcB Int : 443 ms Normal sinus rhythm Normal ECG Confirmed by MILENA CERVANTES, LUIS ([id number]), editor book TESS MURRIETA ([id number]) on 07/19/2024 6:12:19 AM Referred By: DEVIN Confirmed By: LUIS ABBOTT MD
--- NOTE | 2024-07-16 20:16 | ED.VIS.CHEST ---
HPI <KRISTIN Chaudhary - Last Filed: 07/16/24 21:48> History of Present Illness Chief Complaint: Chest Pain Narrative Narrative: 33-year-old male presents with chest pain. 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 He states it felt worse than usual prompting him to come in this evening. He denies nausea, vomiting, abdominal pain, shortness of breath. No fever or cough. He states he gets chest pain almost weekly for the last year. He had a recent Holter monitor but does not know the results. He is seeing Dr. Franco for your the past and had a normal echocardiogram. He takes omeprazole daily. He denies smoking. PFSH <KRISTIN Chaudhary - Last Filed: 07/16/24 21:48> [facility] Medical History Nicotine dependence ETOH abuse Anxiety Lightheadedness Palpitations Chest pain Home Medications ?Medication ?Instructions ?Recorded ?Last Taken ?Type omeprazole 20 mg capsule,delayed 20 mg PO QDAY 05/24/24 Unknown History release Allergy/AdvReac Type Severity Reaction Status Date / Time No Known Allergies Allergy Verified 07/16/24 20:01 Social History (Updated 05/24/24 @ 11:42 by Brittney Moon) household members: family housing: house Smoking Status: Former smoker Tobacco: How many years used: 10 how long ago did patient quit smoking: Former smoker 2022. Former vaper 2023. alcohol intake: current alcohol intake frequency: a few times a week Alcohol type: wine substance use type: does not use and marijuana caffeine: No ROS <KRISTIN Chaudhary Last Filed: 07/16/24 21:48> ROS ED ROS Narrative Constitutional: Negative for fever, chills, malaise. CVS: Positive for palpitations, chest pain. Negative for syncope. Respiratory: Negative for shortness of breath, cough, orthopnea. GI: Negative for abdominal pain, nausea, vomiting. EXAM <KRISTIN Chaudhary Last Filed: 07/16/24 21:48> Physical Exam Narrative Exam Narrative: CONST: Patient appears anxious and is crying. EYES: Normal inspection. NECK: Normal inspection. RESP: No respiratory distress, CTAB. CVS: Regular rate and rhythm, no murmur, no gallop. ABD: Soft and nontender, no guarding or rebound, nondistended. SKIN: Color normal, no rash, warm, dry, intact. EXTREMITIES: Normal appearance, no pedal edema. No calf tenderness. 2+ radial and DP pulses NEURO: Alert and answering questions appropriately. PSYCH: Normal affect. Const Vital Signs: 07/16/24 19:57 07/16/24 20:57 07/16/24 22:00 Temperature 97.9 F Temperature Source Oral Pulse Rate 79 71 72 Respiratory Rate 16 14 18 Blood Pressure 109/98 H 124/84 H Blood Pressure Mean 101 97 Pulse Ox 98 98 Oxygen Delivery Method Room Air Room Air 07/16/24 22:51 Temperature 98.0 F Temperature Source Pulse Rate 71 Respiratory Rate 18 Blood Pressure 118/90 H Blood Pressure Mean 99 Pulse Ox 98 Oxygen Delivery Method <Dr. Jose Red DO - Last Filed: 07/17/24 00:27> Physical Exam Const Vital Signs: 07/16/24 19:57 07/16/24 20:57 07/16/24 22:00 Temperature 97.9 F Temperature Source Oral Pulse Rate 79 71 72 Respiratory Rate 16 14 18 Blood Pressure 109/98 H 124/84 H Blood Pressure Mean 101 97 Pulse Ox 98 98 Oxygen Delivery Method Room Air Room Air 07/16/24 22:51 Temperature 98.0 F Temperature Source Pulse Rate 71 Respiratory Rate 18 Blood Pressure 118/90 H Blood Pressure Mean 99 Pulse Ox 98 Oxygen Delivery Method <KRISTIN Chaudhary - Last Filed: 07/16/24 21:48> Heart Score History: Slightly/Non-Suspicious ECG: Normal Age: </= 45 years Risk Factors: No Risk Factors Troponin: </= Normal Limit Score: 0 <Dr. Jose Red DO - Last Filed: 07/17/24 00:27> Heart Score Score: 0 MDM <KRISTIN Chaudhary - Last Filed: 07/16/24 21:48> MDM MDM Narrative Medical decision making narrative: History gathered from: Patient, family member Differential includes but not limited to ACS, GERD, esophageal spasm, anxiety 33-year-old male presents with midsternal chest pain and palpitations that started around 3 PM. He states he had similar episodes of chest pain/palpitations almost weekly for a year. He appears anxious but nontoxic. His vital signs are normal and he has a benign examination. EKG is nonischemic. Basic labs unremarkable, first troponin is less than 3. I did not order D-dimer because he is PERC negative. He recently had a normal D-dimer on June 13, 2024 as well. His chest x-ray today shows no acute findings. I reviewed his Holter monitor from last month which showed normal sinus rhythm and no correlation with his reported symptoms. If delta troponin is normal I feel he can be discharged safely and he was instructed to follow-up with primary care and cardiology. ED attending interpretation of 2 view chest x-ray shows normal heart size, no acute infiltrate edema or effusion. External records reviewed: 06/17/2024 Holter monitor 48-hour report Normal sinus rhythm. No abnormalities noted. Patient kept a diary of multiple symptoms of feeling chest pain, palpitations, dizziness and arm pain which did not correlate with the scan. Lab Data Attestation: I reviewed the patient's lab results. Labs: Laboratory Results - last 24 hr 07/16/24 20:30 WBC 3.8 L RBC 3.70 L Hgb 13.2 Hct 36.9 L MCV 99.7 H MCH 35.7 H MCHC 35.8 RDW Std Deviation 43.8 RDW Coeff of Leslie 11.9 Plt Count 220 MPV 9.4 Immature Gran % (Auto) 0.500 Neut % (Auto) 47.4 Lymph % (Auto) 34.8 [place] % (Auto) 16.0 H Eos % (Auto) 0.8 Baso % (Auto) 0.5 Absolute Neuts (auto) 1.8 L Absolute Lymphs (auto) 1.31 Nucleated RBC % 0 Sodium 137 Potassium 3.6 Chloride 104 Carbon Dioxide 26.0 Anion Gap 7 BUN 11 Creatinine 1.04 Estim Creat Clear Calc 119.59 Est GFR (MDRD) Af Amer 105 Est GFR (MDRD) Non-Af 87 BUN/Creatinine Ratio 10.6 Glucose 92 Calcium 8.9 Troponin I High Sens < 3 L Radiography Diagnostic Testing: Clinical Impression(s) from Imaging Studies Chest X-Ray 07/16/24 20:20 IMPRESSION: No radiographic evidence of acute cardiopulmonary disease. Electronically Signed: Jairo Gonsales MD at 22:37 EST , <Dr. Jose Red, DO - Last Filed: 07/17/24 00:27> [facility] MDM Narrative Medical decision making narrative: History gathered from: Patient, family member Differential includes but not limited to ACS, GERD, esophageal spasm, anxiety 33-year-old male presents with midsternal chest pain and palpitations that started around 3 PM. He states he had similar episodes of chest pain/palpitations almost weekly for a year. He appears anxious but nontoxic. His vital signs are normal and he has a benign examination. EKG is nonischemic. Basic labs unremarkable, first troponin is less than 3. I did not order D-dimer because he is PERC negative. He recently had a normal D-dimer on June 13, 2024 as well. His chest x-ray today shows no acute findings. I reviewed his Holter monitor from last month which showed normal sinus rhythm and no correlation with his reported symptoms. If delta troponin is normal I feel he can be discharged safely and he was instructed to follow-up with primary care and cardiology. ED attending interpretation of 2 view chest x-ray shows normal heart size, no acute infiltrate edema or effusion. External records reviewed: 06/17/2024 Holter monitor 48-hour report Normal sinus rhythm. No abnormalities noted. Patient kept a diary of multiple symptoms of feeling chest pain, palpitations, dizziness and arm pain which did not correlate with the scan. ED attending note: I evaluated the patient in conjunction with the MARIELENA. I agree with his/her statements and above findings. I have personally performed a face to face assessment of the patient and have reviewed the MARIELENA Note. I performed a substantive portion of the visit including all aspects of the following. I personally saw the patient performed chart review, physical exam, reviewed labs, imaging (if obtained), and formulated a treatment and management plan. 33-year-old male presents with chest pain and palpitations. The patient denies recent surgery in the last 4 weeks or immobilization in the last 3 days, denies previous diagnosis of DVT or PE, hemoptysis, unilateral leg swelling or malignancy with treatment the last 6 months or palliative. No estrogen use noted. Patient denies sudden onset of pain, no tearing sensation, no migratory symptoms, no new numbness, weakness or loss of sensation. Patient denies family history or personal history of Connective tissue disorders (Marfan's Syndrome, Clint Danlos etc). Exam: Regular rate and rhythm, no murmurs gallops or rubs. Lungs were clear. No stigmata of VTE or dissection noted initial exam. No focal neurologic deficits noted. Intact pulses. No lower extremity edema. We performed a broad lab and imaging workup to further elucidate etiology of patient's complaints. EKG was nonischemic Initial troponin was negative CBC without leukocytosis, significant anemia or thrombocytopenia BMP without evidence of significant electrolyte abnormalities, no anion gap, no acute kidney injury. I have personally reviewed the patient's chest x-ray. Chest x-ray is unremarkable for pulmonary edema, pneumothorax, pneumonia or focal cardiopulmonary abnormality. No clear etiology of the patient's chest pain was noted on initial evaluation. Awaiting delta troponin. We initially wanted to assess the patient with a second troponin to assure he had no signs of myocardial ischemia. Prior to second troponin being drawn the patient requested to leave the hospital. He was alert and orient x 3 and had capacity to make his own medical decision. He understood risk and benefits of undergoing further ED evaluation, delta troponin. Understood the risk of being discharged including , disability, inability to earn an income, or worse outcome. With full understanding risk and benefits he chose to be discharged prior to second troponin. He noted he would return if symptoms change or worsen. He promised to follow with her primary care physician for further outpatient evaluation and treatment including a stress test. This note was generated with [employer] dictation software. It may contain incorrect words, spelling, and punctuation that were not noted in review of the chart prior to signing. Lab Data Labs: Laboratory Results - last 24 hr 07/16/24 20:30 WBC 3.8 L RBC 3.70 L Hgb 13.2 Hct 36.9 L MCV 99.7 H MCH 35.7 H MCHC 35.8 RDW Std Deviation 43.8 RDW Coeff of Leslie 11.9 Plt Count 220 MPV 9.4 Immature Gran % (Auto) 0.500 Neut % (Auto) 47.4 Lymph % (Auto) 34.8 [place] % (Auto) 16.0 H Eos % (Auto) 0.8 Baso % (Auto) 0.5 Absolute Neuts (auto) 1.8 L Absolute Lymphs (auto) 1.31 Nucleated RBC % 0 Sodium 137 Potassium 3.6 Chloride 104 Carbon Dioxide 26.0 Anion Gap 7 BUN 11 Creatinine 1.04 Estim Creat Clear Calc 119.59 Est GFR (MDRD) Af Amer 105 Est GFR (MDRD) Non-Af 87 BUN/Creatinine Ratio 10.6 Glucose 92 Calcium 8.9 Troponin I High Sens < 3 L Radiography Diagnostic Testing: Clinical Impression(s) from Imaging Studies Chest X-Ray 07/16/24 20:20 IMPRESSION: No radiographic evidence of acute cardiopulmonary disease. Electronically Signed: Jairo Gonsales MD at 22:37 EST , Discharge Plan Triage Chief Complaint: Chest Pain ED Midlevel Provider: Janet Brewer ED Provider: Jose Red Dx/Rx/DC Orders Clinical Impression: Chest pain, Heart palpitations Instructions: ED Chest Pain, Uncertain Cause Prescriptions: No Action omeprazole 20 mg capsule,delayed release(DR/EC) 20 mg PO QDAY Primary Care Provider: Care Physician,No Primary Referrals: Care Physician,No Primary [Primary Care Provider] - Andres Bhardwaj MD [[facility]] - Activity Restrictions/Additional Instructions: Please see a primary care doctor. You can call the 1 listed above or call the number on your insurance card to get a list of providers that take your insurance. 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 Print Language: Turkmen Disposition Disposition: Home, Self Care Discharge Date/Time: 07/16/24 22:55
--- NOTE | 2024-07-16 20:20 | RAD_ITS ---
EXAM: XR CHEST, 2 VIEWS CLINICAL INDICATION: chest pain TECHNIQUE: Frontal and lateral views of the chest. COMPARISON: 06/13/2024. The FINDINGS: LUNGS AND PLEURAL SPACES: Unremarkable. No consolidation or edema. No pneumothorax. No effusion. HEART: Unremarkable. Cardiac silhouette not enlarged. MEDIASTINUM: Central airways and mediastinal contour are unremarkable. BONES/JOINTS: Unremarkable. No acute fracture. SOFT TISSUES: Unremarkable. RAD/Chest PA and Lateral IMPRESSION: No radiographic evidence of acute cardiopulmonary disease. Electronically Signed: Jairo Gonsales MD at 22:37 EST ,
[2024-07-16 20:45] LABS: Absolute Lymphocyte Count 1.31 X10^3/uL (0.83-4.51); Absolute Neutrophil Count 1.8 X10^3/uL (2.0-7.7); Basophil# 0.02 X10^3/uL; Basophil% 0.5 % (0-1); Eosinophil# 0.03 X10^3/uL; Eosinophils% 0.8 % (0-5); Hematocrit 36.9 % (40-54); Hemoglobin 13.2 g/dL (13.0-16.5); Lymphocyte # 1.31 X10^3/ul (0.83-4.51); Lymphocyte % 34.8 % (19-41); Mean Corp Hgb Conc 35.8 g/dL (32-36); Mean Corpuscular Hgb 35.7 pg (27.0-32.0); Mean Corpuscular Volume 99.7 fL (80-94); Mean Platelet Vol. 9.4 fl (6.2-12.0); NRBC Flagged by Analyzer 0 % (0-5); Neutrophil # 1.78 X10^3/uL (2.7-7.7); Neutrophil % 47.4 % (47-70); Platelet Count 220 K/mm3 (150-450); RBC Distribution Width CV 11.9 % (11.6-14.6); RBC Distribution Width SD 43.8 fl (35.1-43.9); White Blood Count 3.8 K/mm3 (4.4-11.0)
[2024-07-16 20:57] VITALS: BP 124/84; PULSE 71; RESP 14
[2024-07-16 21:05] LABS: Anion Gap 7 (5-15); BUN 11 mg/dL (7-18); BUN/Creat Ratio 10.6 RATIO (10-20); Calcium,Total 8.9 mg/dL (8.5-10.1); Chloride 104 mmol/L (98-107); Creatinine, Serum 1.04 mg/dL (0.70-1.30); EST Glomerular Filtration Rate 87 mL/min (>60); Est Glom Filt Rate - Afr Amer 105 mL/min (>60); Estimated Creatinine Clearance 119.59 ml/min; Glucose 92 mg/dL (74-106); Potassium 3.6 mmol/L (3.5-5.1); Sodium Level 137 mmol/L (136-145); Troponin-I HS (w/2H Reflex) < 3 pg/mL (3.0-78.0)
[2024-07-16] MEDS: hydrOXYzine PAM 25 MG Capsule PO (21:09)
[2024-07-16 22:00] VITALS: PULSE 72; RESP 18; O2SAT 98
[2024-07-16 22:41] LABS: Reflex Troponin-HS? (from REC) Y
[2024-07-16 22:51] VITALS: BP 118/90; PULSE 71; RESP 18; TEMP 36.7; O2SAT 98
== END 2024-07-16 22:55 | disposition home or self-care (01) ==
PROVIDERS: Physician Assistant; Emergency Provider Emergency Medicine; Visit Provider Emergency Medicine
DX: R07.9 Chest pain, unspecified (principal); R00.2 Palpitations; Z87.891 Personal history of nicotine dependence
CPT/HCPCS: 71046; 80048; 84484; 85025; 93005; 99282; A4216

== ENCOUNTER 2024-07-26 13:28 | Day surgery (SDC) | payer MEDICAID, SELFPAY ==
--- NOTE | 2024-07-25 16:45 | PAT.ANESEVAL ---
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 When Was Last Pacemaker Check QUESTION #4 FULL TEXT: You/Your Family Experience fever (hyperthermia) with Anesthesia Last Oral Intake Last Oral intake: Last Oral Intake NPO since Meds taken in AM with sips of water? Meds patient instructed to take am of surgery PONV PONV - dressing room attendant: PONV - dressing room attendant Female No 07/25/24 16:23 HX of Motion Sickness No 07/25/24 16:23 HX of N/V After Surgery No 07/25/24 16:23 Non-Smoker Yes 07/25/24 16:23 Duration of Surgery greater No 07/25/24 16:23 than 60 minutes Number of Risk Factors 1 07/25/24 16:23 PONV Score Low Risk 07/25/24 16:23 Height & Weight Height & Weight: Anesthesia: Height & Weight Height 5 ft 11 in 07/16/24 19:57 Respiratory Assessment Respiratory Assessment - dressing room attendant: Respiratory Tract Infection Hx - dressing room attendant Hx Respiratory Tract Infection No 07/25/24 16:23 STOP Sleep Apnea STOP Sleep Apnea - dressing room attendant: STOP Sleep Apnea - dressing room attendant Hx Hypertension No 07/25/24 16:23 Hx Sleep Apnea No 07/25/24 16:23 CPAP BIPAP Do you snore loudly (louder Yes 07/25/24 16:23 than talking or can be heard Do you often feel tired/ No 07/25/24 16:23 fatigued/ sleepy during daytime? Has anyone observed you stop No 07/25/24 16:23 breathing during sleep? STOP Results Negative 07/25/24 16:23 QUESTION #5 FULL TEXT : Do you snore loudly (louder than talking or can be heard through closed doors)? 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 Specify any problems Hx of Preganancy in last 3 N/A 07/25/24 16:23 Months Nurse Filling Out Transfusion DSCHRIBER 07/25/24 16:23 & Questions: Date: 07/25/24 07/25/24 16:23 Time: 16:24 07/25/24 16:23 Patient unable to answer at this time (ie. confused, unrespo /Reproduction History /Reproductive History - dressing room attendant: /Reproductive Hx- dressing room attendant Hx Now No 07/25/24 16:23 Gestational Age (in weeks): EDC: Hx Hx Para Hx Section SAB No 07/25/24 16:23 PFSH Medical History (Updated 07/25/24 @ 16:31 by Fatimah Silva) Wears contact lenses Depression Marijuana use Gastric reflux Cardiology follow-up encounter History of Holter monitoring History of echocardiogram Former smoker History of electroconvulsive therapy Nicotine dependence ETOH abuse Anxiety Lightheadedness Palpitations Chest pain Home Medications ?Medication ?Instructions ?Recorded ?Last Taken ?Type omeprazole 20 mg capsule,delayed 20 mg PO QDAY 05/24/24 Unknown History release Allergy/AdvReac Type Severity Reaction Status Date / Time No Known Allergies Allergy Verified 07/25/24 16:22 Surgical History (Updated 07/25/24 @ 16:31 by Fatimah Silva) History of esophagogastroduodenoscopy (EGD) Hx of wisdom tooth extraction Social History (Updated 05/24/24 @ 11:42 by Brittney Moon) household members: family housing: house Smoking Status: Never smoker Tobacco: How many years used: 10 how long ago did patient quit smoking: Former smoker 2022. Former vaper 2023. alcohol intake: current alcohol intake frequency: a few times a week Alcohol type: wine substance use type: does not use and marijuana caffeine: No Audit: Pertinent Findings Pertinent Findings EKG Perinent findings: 07/16/2024 normal sinus rhythm 69 bpm Echo (EF%) pertinent findings: 11/03/2023 EF 55% normal diastolic function normal valves Consult pertinent findings: Cardiology 09/29/2023 palpitations chronic history of chest pain check stress test to rule out ischemia EtOH abuse chronic Pulmonary function results/spirometer pertinent findings: 07/16/2024 no evidence of acute cardiopulmonary disease Current Visit Impressions Current Visit Impressions: Note stress test is not available if patient has having ongoing symptoms that could be cardiac should consider cardiology evaluation if needed or appropriate Recommendation Anesthesia Recommendation Anesthesia recommendation: F/U recommended
[2024-07-26] VITALS (7 sets, daily range): BP systolic 111–122; BP diastolic 73–92; PULSE 71–92; RESP 16–20; TEMP 36.6–36.8; O2SAT 96–99; BMI 30.4
--- NOTE | 2024-07-26 13:43 | HP.PCM_ITS ---
HPI - General General Date of Admission: 07/26/24 Date of Service: 07/26/24 Chief Complaint: diarrhea HPI Narrative AUBREE STEWART, is a 33 M who presents for colonoscopy regarding persistent diarrhea. [facility] Est. 05.24.24 for [facility] ED FU epigastric pain, and diarrhea. Almost 6 days ago he felt like he may have had food poisoning. Drinks alcohol, states that he drinks a bottle of wine almost daily. No prior abdominal surgeries. Has taken omeprazole on and off for years. History of alcohol use, the differential is pancreatitis versus alcoholic gastritis. He could have transverse diverticulitis as well versus gastroenteritis. Total bilirubin slightly elevated 1.4, but this appears to be chronic. CT of the abdomen and pelvis which shows wall thickening around the terminal ileum consistent with terminal ileitis. Restart omeprazole and follow-up with gastroenterology. He may have more of a gastritis. OV 05.24.24 Continued epigastric pain that appears mild constantly, with flares of increased pain. Feels nauseated most of the time. Alternating constipation or multiple episodes in a day of very soft BM 3x/week. Drinks alcohol bottle of wine few times a week. Smokes marijuana socially. Heartburn controlled while taking omeprazole. [facility] Medical History Wears contact lenses Depression Marijuana use Gastric reflux Cardiology follow-up encounter History of Holter monitoring History of echocardiogram Former smoker History of electroconvulsive therapy Nicotine dependence ETOH abuse Anxiety Lightheadedness Palpitations Chest pain Home Medications ?Medication ?Instructions ?Recorded ?Last Taken ?Type omeprazole 20 mg capsule,delayed 20 mg PO QDAY 4 Unknown History release Allergy/AdvReac Type Severity Reaction Status Date / Time No Known Allergies Allergy Verified 07/25/24 16:22 Surgical History History of esophagogastroduodenoscopy (EGD) Hx of wisdom tooth extraction Social History household members: family housing: house Smoking Status: Never smoker Tobacco: How many years used: 10 how long ago did patient quit smoking: Former smoker 2022. Former vaper 2023. 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 He related history that on Thursday at the beginning of the week, almost 6 days ago he felt like he may have had food poisoning. He had nausea and vomiting which resolved. Last evening and a few hours ago he developed diarrhea, now has epigastric pain and cramping. He denies any fevers or chills, no exacerbating or alleviating factors. Said decreased appetite as well all week. He presents mainly because of the upper, epigastric pain. He does drink alcohol and states that he drinks a bottle of wine almost daily. No prior abdominal surgeries. He does not take daily medications. CBC, platelet, white blood cell count are normal. He did have mildly elevated bilirubin at 1.4 with AST 50 ALT of 25 and alkaline phosphatase of 75. He had a CT scan abdomen pelvis that displayed: Wall thickening and inflammation of the terminal ileum suggesting terminal ileitis. After talking to him he says he does have diarrhea on a frequent basis. Differential diagnosis does include inflammatory bowel disease, infectious enteritis. He should undergo colonoscopy to evaluate his lower GI tract. He should also get biochemical workup for inflammatory bowel disease. He was explained alternatives, risk and benefits include understanding bleeding, infection, sepsis, perforation, need emergent and . He have an ASA of 3. Orders: Orders Erythrocyte Sed Rate Today F10.10 - Alcohol abuse, uncomplicated, R19.7 - Diarrhea, unspecified CRP Today F10.10 - Alcohol abuse, uncomplicated, R19.7 - Diarrhea, unspecified IBD Expanded Profile Today F10.10 - Alcohol abuse, uncomplicated, R19.7 - Diarrhea, unspecified ANCA Today F10.10 - Alcohol abuse, uncomplicated, R19.7 - Diarrhea, unspecified SHEFALI Comprehensive Panel Today F10.10 - Alcohol abuse, uncomplicated, R19.7 - Diarrhea, unspecified Allergen, Food Profile Today F10.10 - Alcohol abuse, uncomplicated, R19.7 - Diarrhea, unspecified Coding
--- NOTE | 2024-07-26 13:54 | PAT.ANE_ITS ---
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 When Was Last Pacemaker Check QUESTION #4 FULL TEXT: You/Your Family Experience fever (hyperthermia) with Anesthesia Last Oral Intake Last Oral intake: Last Oral Intake NPO since Meds taken in AM with sips of water? Meds patient instructed to take am of surgery PONV PONV - oracle soa developer: PONV - oracle soa developer Female No 07/25/24 16:23 HX of Motion Sickness No 07/25/24 16:23 HX of N/V After Surgery No 07/25/24 16:23 Non-Smoker Yes 07/25/24 16:23 Duration of Surgery greater No 07/25/24 16:23 than 60 minutes Number of Risk Factors 1 07/25/24 16:23 PONV Score Low Risk 07/25/24 16:23 Height & Weight Height & Weight: Anesthesia: Height & Weight Height 5 ft 11 in 07/16/24 19:57 Respiratory Assessment Respiratory Assessment - oracle soa developer: Respiratory Tract Infection Hx - oracle soa developer Hx Respiratory Tract Infection No 07/25/24 16:23 STOP Sleep Apnea STOP Sleep Apnea - oracle soa developer: STOP Sleep Apnea - oracle soa developer Hx Hypertension No 07/25/24 16:23 Hx Sleep Apnea No 07/25/24 16:23 CPAP BIPAP Do you snore loudly (louder Yes 07/25/24 16:23 than talking or can be heard Do you often feel tired/ No 07/25/24 16:23 fatigued/ sleepy during daytime? Has anyone observed you stop No 07/25/24 16:23 breathing during sleep? STOP Results Negative 07/25/24 16:23 QUESTION #5 FULL TEXT : Do you snore loudly (louder than talking or can be heard through closed doors)? 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 Specify any problems Hx of Preganancy in last 3 N/A 07/25/24 16:23 Months Nurse Filling Out Transfusion DSCHRIBER 07/25/24 16:23 & Questions: Date: 07/25/24 07/25/24 16:23 Time: 16:24 07/25/24 16:23 Patient unable to answer at this time (ie. confused, unrespo /Reproduction History /Reproductive History - oracle soa developer: /Reproductive Hx- oracle soa developer Hx Now No 07/25/24 16:23 Gestational Age (in weeks): EDC: Hx Hx Para Hx Section SAB No 07/25/24 16:23 PFSH Medical History Wears contact lenses Depression Marijuana use Gastric reflux Cardiology follow-up encounter History of Holter monitoring History of echocardiogram Former smoker History of electroconvulsive therapy Nicotine dependence ETOH abuse Anxiety Lightheadedness Palpitations Chest pain Home Medications ?Medication ?Instructions ?Recorded ?Last Taken ?Type omeprazole 20 mg capsule,delayed 20 mg PO QDAY 4 07/25/24 History release Allergy/AdvReac Type Severity Reaction Status Date / Time No Known Allergies Allergy Verified 07/26/24 13:53 Surgical History History of esophagogastroduodenoscopy (EGD) Hx of wisdom tooth extraction Social History household members: family housing: house Smoking Status: Never smoker Tobacco: How many years used: 10 how long ago did patient quit smoking: Former smoker 2022. Former vaper 2023. alcohol intake: current alcohol intake frequency: a few times a week Alcohol type: wine substance use type: does not use and marijuana caffeine: No Audit: Pertinent Findings HISTORY of Pertinent Findings History of Pertinent Findings: EKG Pertinent Findings EKG Perinent findings 07/16/2024 normal sinus 07/25/24 16:48 rhythm 69 bpm Echo Pertinent Findings Echo (EF%) pertinent findings 11/03/2023 EF 55% normal 07/25/24 16:48 diastolic function normal valves Consult Pertinent Findings Consult pertinent findings Cardiology 09/29/2023 07/25/24 16:48 palpitations chronic history of chest pain check stress test to rule out ischemia EtOH abuse chronic Pulmonary Function Pertinent Findings Pulmonary function results/ 07/16/2024 no evidence of 07/25/24 16:48 spirometer pertinent findings acute cardiopulmonary disease Pertinent Findings Additional pertinent findings: Cardiology consult in September 2023 requested a stress test. The patient had a echocardiogram in October which was normal. A stress test was never completed. Reviewed by Dr. Trotter in July 25, 2024 states that patient needs a stress test if he is still having ongoing chest pain. Currently the patient states that he occasionally does have chest pain but does not always seem to be related to exertion. He is able to walk up 2 flights of stairs carrying groceries. This was translated to about a 4 METS on the stress test. Patient is okay for this procedure. Recommendation Anesthesia Recommendation Anesthesia recommendation: OPTIMIZED for anesthesia
--- NOTE | 2024-07-26 13:59 | PCM.PRE.AN2 ---
ASA Classification* ASA Classification ASA Classification: 2 Assessment & Plan Anesthesia* Anesthesia Assessment Anesthesia Assessment: Discussed sedation and/or anesthesia options, risks, benefits, and alternatives with patient/parents/legal guardian/POA. Questions invited. The patient/parents/legal guardian/POA seems to understand and agrees to proceed with anesthesia plan. Reviewed the physical assessment, medical history, allergy history and patient home medications list prior to surgery/procedure/anesthetic and documented any changes. Performed airway and anesthesia risk assessments. Anesthesia Type Anesthesia Type: MAC History Source History Obtained from:: Patient and Chart Anesthesia Focused Assessment* Temperature: 98.2 F Pulse Rate: 92 Blood Pressure: 122/92 Respiratory Rate: 18 Pulse Ox: 96 Oxygen Delivery Method: Room Air Airway Assessment Mouth opens: >3 cm Mallampati Score: I Teeth Condition: Caps/Crowns (Offerman on right lower molar. All other teeth are tight.) and Chipped/Broken (Chipped right upper molar.) Neck Range of motion (ROM): Full ROM Focused Labs Anesthesia Preop lab: CBC WBC 3.8 K/mm3 (4.4-11.0) L 07/16/24 20:07/16/24 RBC 3.70 M/mm3 (4.6-6.2) L 07/16/24 20:07/16/24 Hgb 13.2 g/dL (13.0-16.5) 07/16/24 20:07/16/24 Hct 36.9 % (40-54) L 07/16/24 20:07/16/24 Plt Count 220 K/mm3 (150-450) 07/16/24 20:30 07/16/24 CHEMISTRY Potassium 3.6 mmol/L (3.5-5.1) 07/16/24 20:07/16/24 Sodium 137 mmol/L (136-145) 07/16/24 20:07/16/24 BUN 11 mg/dL (7-18) 07/16/24 20:30 07/16/24 Creatinine 1.04 mg/dL (0.70-1.30) 07/16/24 20:07/16/24 Glucose 92 mg/dL (74-106) 07/16/24 20:07/16/24 TSH 2.580 uIU/mL (0.358-3.740) 06/13/24 18:05 06/13/24 COAG Pre-Assessment Diagnosis/Proposed Procedure Planned Operative Procedure(s): CSCOPE Anesthesia History 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 When Was Last Pacemaker Check QUESTION #4 FULL TEXT: You/Your Family Experience fever (hyperthermia) with Anesthesia Last Oral Intake Last Oral intake: Last Oral Intake NPO since 11:00 07/26/24 13:51 Meds taken in AM with sips of water? Meds patient instructed to take am of surgery PONV PONV - interior assemblies installer: PONV - interior assemblies installer Female No 07/25/24 16:23 HX of Motion Sickness No 07/25/24 16:23 HX of N/V After Surgery No 07/25/24 16:23 Non-Smoker Yes 07/25/24 16:23 Duration of Surgery greater No 07/25/24 16:23 than 60 minutes Number of Risk Factors 1 07/25/24 16:23 PONV Score Low Risk 07/25/24 16:23 Height & Weight Height & Weight: Anesthesia: Height & Weight Height 5 ft 11 in 07/26/24 13:51 Weight: 99.155 kg 07/26/24 13:51 Body Mass Index (BMI) 30.4 07/26/24 13:51 Respiratory Assessment Respiratory Assessment - interior assemblies installer: Respiratory Tract Infection Hx - interior assemblies installer Hx Respiratory Tract Infection No 07/25/24 16:23 STOP Sleep Apnea STOP Sleep Apnea - interior assemblies installer: STOP Sleep Apnea - interior assemblies installer Hx Hypertension No 07/25/24 16:23 Hx Sleep Apnea No 07/25/24 16:23 CPAP BIPAP Do you snore loudly (louder Yes 07/25/24 16:23 than talking or can be heard Do you often feel tired/ No 07/25/24 16:23 fatigued/ sleepy during daytime? Has anyone observed you stop No 07/25/24 16:23 breathing during sleep? STOP Results Negative 07/25/24 16:23 QUESTION #5 FULL TEXT : Do you snore loudly (louder than talking or can be heard through closed doors)? 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 Specify any problems Hx of Preganancy in last 3 N/A 07/25/24 16:23 Months Nurse Filling Out Transfusion DSCHRIBER 07/25/24 16:23 & Questions: Date: 07/25/24 07/25/24 16:23 Time: 16:24 07/25/24 16:23 Patient unable to answer at this time (ie. confused, unrespo /Reproduction History /Reproductive History - interior assemblies installer: /Reproductive Hx- interior assemblies installer Hx Now No 07/25/24 16:23 Gestational Age (in weeks): EDC: Hx Hx Para Hx Section SAB No 07/25/24 16:23 PFSH Medical History Wears contact lenses Depression Marijuana use Gastric reflux Cardiology follow-up encounter History of Holter monitoring History of echocardiogram Former smoker History of electroconvulsive therapy Nicotine dependence ETOH abuse Anxiety Lightheadedness Palpitations Chest pain Home Medications ?Medication ?Instructions ?Recorded ?Last Taken ?Type omeprazole 20 mg capsule,delayed 20 mg PO QDAY 05/24/24 07/25/24 History release Allergy/AdvReac Type Severity Reaction Status Date / Time No Known Allergies Allergy Verified 07/26/24 13:53 Surgical History History of esophagogastroduodenoscopy (EGD) Hx of wisdom tooth extraction Social History household members: family housing: house Smoking Status: Never smoker Tobacco: How many years used: 10 how long ago did patient quit smoking: Former smoker 2022. Former vaper 2023. alcohol intake: current alcohol intake frequency: a few times a week Alcohol type: wine substance use type: does not use and marijuana caffeine: No Review of Systems (Anesthesia) ROS Narrative System reviewed and no additional complaints, except as documented.
--- NOTE | 2024-07-26 14:30 | COLBX_PTH ---
PATIENT: AUBREE STEWART LOC: EN U#:[id number] AGE/SX: 33/M ROOM: RE07/26/[address]: Dr. Johnny Wang DO : 1990 BED: DIS: 07/26/2024 SPEC #: [id number] RECD: 07/27/24 09:12 STATUS: LILY REMarielos #: [id number] MARTIN: 07/26/24 14:[address]: Johnny Wang DEPT: SURGICAL PATHOLOGY RECD BY: Leticia Brewster ENTERED: 07/27/24 11:13 SP TYPE: COLON BX OTHR DR: No Primary Care Phys Tissues: Ileum, NOS Procedures: Surgery Specimen Level IV HEADER OPERATION: Colonoscopy, biopsy PRE-OP DIAGNOSIS: ETOH abuse, diarrhea TISSUE SUBMITTED: Terminal ileum biopsy MICROSCOPIC DIAGNOSIS Terminal ileum, biopsy: Fragments of small intestinal mucosa, no pathologic diagnosis. See comment. 07/28/2024 COMMENT Prominent lymphoid aggregates are noted. MICROSCOPIC DESCRIPTION Slides are reviewed. GROSS DESCRIPTION Received in fixative is one container labeled with the patient's name and designated Terminal ileum biopsy. The specimen consists of two irregular fragments of light joseph soft tissue that in aggregate measure 0.8 x 0.4 x 0.1 cm. The specimen is totally submitted in one cassette. MS/mr 07/27/2024 TC:4 CPT:29743
--- NOTE | 2024-07-26 14:36 | OP.COLON_ITS ---
Patient Name: Raoul Crystal Procedure Date: 07/26/2024 2:04 PM Date of : 1990 Age: 33 Procedure: Colonoscopy Indications: Clinically significant diarrhea of unexplained origin Providers: Johnny Wang DO Referring MD: No Primary Care Physician Medicines: Monitored Anesthesia Care Patient Profile: This is a 33 year old male. Refer to note in patient chart for documentation of history and physical. Last Colonoscopy: none. The patient's first colonoscopy is today. Complications: No immediate complications. Procedure: Pre-Anesthesia Assessment: - Prior to the procedure, a History and Physical was performed, and patient medications and allergies were reviewed. The patient is competent. The risks and benefits of the procedure and the sedation options and risks were discussed with the patient. All questions were answered and informed consent was obtained. Patient identification and proposed procedure were verified by the physician in the pre-procedure area. Mental Status Examination: alert and oriented. Airway Examination: normal oropharyngeal airway and neck mobility. Respiratory Examination: clear to auscultation. CV Examination: normal. Prophylactic Antibiotics: The patient does not require prophylactic antibiotics. Prior Anticoagulants: The patient has taken no anticoagulant or antiplatelet agents except for NSAID medication. ASA Grade Assessment: II - A patient with mild systemic disease. After reviewing the risks and benefits, the patient was deemed in satisfactory condition to undergo the procedure. The anesthesia plan was to use monitored anesthesia care (MAC). Immediately prior to administration of medications, the patient was re-assessed for adequacy to receive sedatives. The heart rate, respiratory rate, oxygen saturations, blood pressure, adequacy of pulmonary ventilation, and response to care were monitored throughout the procedure. The physical status of the patient was re-assessed after the procedure. After I obtained informed consent, the scope was passed under direct vision. Throughout the procedure, the patient's blood pressure, pulse, and oxygen saturations were monitored continuously. The Colonoscope was introduced through the anus and advanced to the cecum, identified by appendiceal orifice and ileocecal valve. The colonoscopy was performed without difficulty. The patient tolerated the procedure well. The quality of the bowel preparation was adequate. The terminal ileum, ileocecal valve, appendiceal orifice, and rectum were photographed. Scope In: 2:19:07 PM Scope Withdrawal Time 0 hours 7 minutes 14 seconds Scope Out: 2:28:41 PM Total Procedure Duration Time 0 hours 9 minutes 34 seconds Findings: The perianal and digital rectal examinations were normal. The colon (entire examined portion) appeared normal. Segmental moderate mucosal changes characterized by erosions, friability and granularity were found in the distal ileum and in the terminal ileum. Biopsies were taken with a cold forceps for histology. Verification of patient identification for the specimen was done. Estimated blood loss was minimal. Impression: - The entire examined colon is normal. - Moderate mucosal changes were found in the ileum secondary to ileitis. Biopsied. Recommendation: - Discharge patient to home. - Resume previous diet. - Continue present medications. - Await pathology results. - Repeat colonoscopy in 5 years for surveillance based on pathology results. Procedure Code(s): --- Professional --- 35378, Colonoscopy, flexible; with biopsy, single or multiple CPT copyright 2021 [employer]. All rights reserved. The codes documented in this report are preliminary and upon outside salesperson review may be revised to meet current compliance requirements. Johnny Wang DO 07/26/2024 2:35:49 PM This report has been signed electronically. Number of Addenda: 0 Note Initiated On: 07/26/2024 2:04 PM
--- NOTE | 2024-07-26 14:36 | OP.CCLET_ITS ---
07/26/2024 No Primary Care Physician Re : Colonoscopy procedure for Raoul Crystal Dear Care Physician This procedure was performed on Friday, July 26, 2024. My impressions and recommendations are as follows: Impressions : - The entire examined colon is normal. - Moderate mucosal changes were found in the ileum secondary to ileitis. Biopsied. Recommendations : - Discharge patient to home. - Resume previous diet. - Continue present medications. - Await pathology results. - Repeat colonoscopy in 5 years for surveillance based on pathology results. My findings are described in the full procedure note, which is enclosed. If I can be of further assistance, please feel free to contact me at . Sincerely, Johnny Wang, 07/26/2024 2:35:49 PM This report has been signed electronically.
--- NOTE | 2024-07-26 14:37 | PCM.POST.ANE ---
Anesthesia: Postop Eval I Current Vital Signs Temperature: 98 F Pulse Rate: 78 Blood Pressure: 111/73 Respiratory Rate: 20 Pulse Ox: 97 Oxygen Delivery Method: Room Air Assessment Airway patent: Yes Spontaneous unlabored respirations: Yes Mental status: Awake and Calm nausea: No Vomiting: No Anesthesia Complication: No Fluid Hydration Crystalloid volume administer (ml): 10 Total IV fluid infused: 10 Progress Note Anesthesia document: Postop Eval 1 completed: Yes
--- NOTE | 2024-07-26 15:01 | POSTOPAN2_ITS ---
Anesthesia Postop Eval I Sum Postop Eval Completion status Anesthesia document: Postop Eval 1 completed: Yes Anesthesia Postop Eval I Summary Anesthesia Postop Eval I Summary: Anesthesia Postop Eval I: Assessment Summary Airway patent Yes 07/26/24 14:38 [email or web address] Spontaneous unlabored Yes 07/26/24 14:38 [email or web address] respirations Mental status Awake,Calm 07/26/24 14:38 [email or web address] nausea No 07/26/24 14:38 [email or web address] [email or web address] Vomiting No 07/26/24 14:38 [email or web address] Anesthesia Postop Eval I: Fluid Summary Crystalloid volume administer 10 07/26/24 14:38 [email or web address] (ml) Colloids volume administered ( ml) Blood Product volume administered (ml) Total IV fluid infused 10 07/26/24 14:38 [email or web address] Anesthesia Postop Eval I: Summary Notes Anesthesia Complication No 07/26/24 14:38 [email or web address] Anesthesia Complication Comment: Post-operative progress note Anesthesia: Postop Eval II Evaluation Mental status: Awake and Calm Pain Level: 0 nausea: No Vomiting: No
--- NOTE | 2024-07-26 15:01 | PCM.POSTANE2 ---
Anesthesia Postop Eval I Sum Postop Eval Completion status Anesthesia document: Postop Eval 1 completed: Yes Anesthesia Postop Eval I Summary Anesthesia Postop Eval I Summary: Anesthesia Postop Eval I: Assessment Summary Airway patent Yes 07/26/24 14:38 CORRECTIONS [email or web address] Spontaneous unlabored Yes 07/26/24 14:38 CORRECTIONS COUNSELOR.DBAK respirations Mental status Awake,Calm 07/26/24 14:38 CORRECTIONS [email or web address].[email or web address] nausea No 07/26/24 14:38 CORRECTIONS COUNSELOR.[email or web address] Vomiting No 07/26/24 14:38 CORRECTIONS [email or web address].[email or web address] Anesthesia Postop Eval I: Fluid Summary Crystalloid volume administer 10 07/26/24 14:38 CORRECTIONS [email or web address].[email or web address] (ml) Colloids volume administered ( ml) Blood Product volume administered (ml) Total IV fluid infused 10 07/26/24 14:38 CORRECTIONS [email or web address].[email or web address] Anesthesia Postop Eval I: Summary Notes Anesthesia Complication No 07/26/24 14:38 CORRECTIONS [email or web address].[email or web address] Anesthesia Complication Comment: Post-operative progress note Anesthesia: Postop Eval II Evaluation Mental status: Awake and Calm Pain Level: 0 nausea: No Vomiting: No
== END 2024-07-26 15:11 | disposition home or self-care (01) ==
LOC: EN 13:29 → AC 13:31
PROVIDERS: Visit Provider Internal Medicine Gastroenterology
PROC: 0DJD8ZZ Inspection of Lower Intestinal Tract, Via Natural or Artificial Opening Endoscopic (ICD-10-PCS; CPT 45378; principal; 2024-07-26 14:25)
DX: K25.9 Gastric ulcer, unspecified as acute or chronic, without hemorrhage or perforation (principal); R19.7 Diarrhea, unspecified; Z87.891 Personal history of nicotine dependence; F10.10 Alcohol abuse, uncomplicated; Z79.899 Other long term (current) drug therapy; K21.9 Gastro-esophageal reflux disease without esophagitis
CPT/HCPCS: 45380; 88305; A4216

== ENCOUNTER → 2024-08-30 | Outpatient (CLI) | payer MEDICAID, SELFPAY ==
[2024-08-30 15:30] LABS: Erythrocyte Sedimentation Rate 9 mm/hr (0-20)
[2024-08-30 19:34] LABS: CRP < 3.00 mg/L (0.0-3.0)
[2024-09-06 11:08] LABS: ACCA 32 units (0-90); ALCA 31 units (0-60); AMCA 54 units (0-100); Cytoplasmic Ab (C-ANCA) <1:20 titer (Neg:<1:20); Perinuclear Ab (P-ANCA) <1:20 titer (Neg:<1:20); gASCA 16 units (0-50)
[2024-09-07 14:08] LABS: Anti-Centromere B Ab <0.2 AI (0.0-0.9); Anti-Chromatin <0.2 AI (0.0-0.9); Anti-Jo <0.2 AI (0.0-0.9); Anti-Scleroderma-70 AB <0.2 AI (0.0-0.9); Anti-dsDNA Ab <1 IU/mL (0-9); Clam <0.10 kU/L (Class 0); Codfish <0.10 kU/L (Class 0); Corn <0.10 kU/L (Class 0); Egg, White <0.10 kU/L (Class 0); Milk (Cow) <0.10 kU/L (Class 0); Peanut <0.10 kU/L (Class 0); RNP Ab <0.2 AI (0.0-0.9); SCALLOP <0.10 kU/L (Class 0); SESAME SEED <0.10 kU/L (Class 0); SJOGREN'S Anti-SS-A test < 0.2 AI (0.0-0.9); SJOGREN'S Anti-SS-B test < 0.2 AI (0.0-0.9); Shrimp <0.10 kU/L (Class 0); Smith Ab <0.2 AI (0.0-0.9); Soybean <0.10 kU/L (Class 0); Walnut, (Food) <0.10 kU/L (Class 0); Wheat <0.10 kU/L (Class 0)
== END | disposition home or self-care (01) ==
LOC: LAB 14:26
PROVIDERS: Referring Provider Internal Medicine Gastroenterology; Visit Provider Internal Medicine Gastroenterology
DX: F10.10 Alcohol abuse, uncomplicated (principal); R19.7 Diarrhea, unspecified
CPT/HCPCS: 36415; 83516; 85652; 86003; 86036; 86037; 86140; 86225; 86235; 86671